=== PATIENT | female | born 1945 | race Caucasian/White ===

== ENCOUNTER → 2016-09-29 | Outpatient (REF) | payer MEDICARE, OTHER ==
[~2016-09-29] MED LIST: ACTO30TA; ASPI1TAB PO; ATEN50TA2; CARV12.5 PO; FURO40TA2; GLIP10TA6 PO; GLUC500T; GLUC500T PO; LISI20TA5 OR; LUMIGAN EYE DROPS; METF500T4; PLAV75TA38 PO; [UNRECOGNIZED DRUG - CODE]; stool softener OR
== END ==
LOC: M SMT 12:51
PROVIDERS: ATTEND Urology
DX: C67.9 Malignant neoplasm of bladder, unspecified (principal)

== ENCOUNTER → 2016-11-05 | Outpatient (CLI) | payer MEDICARE ==
[2016-11-05 11:53] LABS: MEAN CORPUSCULAR HEMOGLOBIN 29.8 pg (27.0-33.0); MEAN CORPUSCULAR HGB CONC 32.2 g/dl (32.0-36.5); MEAN CORPUSCULAR VOLUME 92.7 fl (80.0-96.0); RED CELL DISTRIBUTION WIDTH 12.7 % (11.5-14.5); WHITE BLOOD COUNT 9.8 K/mm3 (4.0-10.0)
[2016-11-05 12:43] LABS: ALBUMIN 3.9 GM/DL (3.2-5.2); ALBUMIN/GLOBULIN RATIO 1.22 (1.00-1.93); BILIRUBIN,TOTAL 0.3 MG/DL (0.2-1.0); CALCIUM LEVEL 9.8 MG/DL (8.8-10.2); CREATININE FOR GFR 1.25 MG/DL (0.55-1.02); GLOMERULAR FILTRATION RATE 44.8 (>39); TOTAL PROTEIN 7.1 GM/DL (6.4-8.2)
== END ==
LOC: M SMT 08:02
PROVIDERS: ATTEND Urology
DX: C67.9 Malignant neoplasm of bladder, unspecified (principal)

== ENCOUNTER → 2017-01-12 | Outpatient (REF) | payer MEDICARE | LOC: M SMT 16:55 | PROVIDERS: ATTEND Urology | DX: Z85.51 Personal history of malignant neoplasm of bladder (principal) ==

== ENCOUNTER → 2017-02-19 | Outpatient (REF) | payer MEDICARE | LOC: M SMT 10:34 | PROVIDERS: ATTEND Urology | DX: R35.0 Frequency of micturition (principal) ==

== ENCOUNTER → 2017-04-13 | Outpatient (REF) | payer MEDICARE ==
[~2017-04-13] MED LIST changes: +PLAV1TAB2 PO; -PLAV75TA38 PO
== END ==
LOC: M SMT 12:55
PROVIDERS: ATTEND Urology
DX: Z85.51 Personal history of malignant neoplasm of bladder (principal)

== ENCOUNTER → 2017-07-29 | Outpatient (CLI) | payer MEDICARE ==
[~2017-07-29] MED LIST changes: +ISOVUE-370 76% 100ML VIAL (Q9967) As Ordered ONE
--- NOTE | 2017-07-29 15:35 | REP ---
Clinical: Hematuria. Technique: Axial precontrast, contrast enhanced and delayed images of the abdomen and pelvis using 100 ml Isovue 370 intravenous contrast material with coronal and sagittal re-formations. Comparison: 12/31/2014. Findings: Few nonobstructing bilateral intrarenal calculi measure up to approximately 2 mm and small bilateral primarily sub centimeter cysts are also identified (right greater than left) - the largest of which is noted in the right kidney measures 12 mm. Cortical scarring and atrophic change noted (left greater than right). No perinephric stranding, hydroureteronephrosis or obstructing ureteral calculi are identified. Delayed images demonstrate normal excretion to the collecting system including ureters and bladder. Fatty infiltration the liver noted. Spleen, pancreas, and bilateral adrenal glands are normal. The patient is status post cholecystectomy. Midline ventral hernias containing nonobstructed loops of bowel and are unchanged compared to 2014. No evidence for acute bowel obstruction or inflammatory process. Pelvis demonstrates normal bladder and uterus/adnexa. Evidence for prior partial sigmoid anastomosis. No pelvic fluid or ascites. No adenopathy. No obvious solitary mass lesion. Atherosclerotic changes of the aorta and vasculature noted without aneurysm or dissection. Musculoskeletal structures demonstrate diffuse degenerative changes without focal osseous abnormality. Lung bases are clear. Impression: 1. Kidneys demonstrate mild cortical scarring and chronic changes along with few scattered small cysts measuring up to 12 mm and few small intrarenal calculi up to 2 mm. No associated acute obstructive uropathy or significant urological pathology otherwise appreciated. 2. Few ventral hernias containing nonobstructed loops of bowel essentially unchanged compared to 2014. 3. Further chronic stable changes as described above. Signed by Ward Rahmna MD 07/29/2017 03:26 P
== END ==
LOC: M RAD 13:41
PROVIDERS: ATTEND Urology
DX: N28.1 Cyst of kidney, acquired (principal); K43.9 Ventral hernia without obstruction or gangrene
CPT/HCPCS: 74178; Q9967

== ENCOUNTER → 2017-08-03 | Outpatient (REF) | payer MEDICARE ==
[~2017-08-03] MED LIST changes: -ISOVUE-370 76% 100ML VIAL (Q9967) As Ordered ONE
== END ==
LOC: M SMT 12:58
PROVIDERS: ATTEND Urology
DX: Z08 Encounter for follow-up examination after completed treatment for malignant neoplasm (principal); Z85.51 Personal history of malignant neoplasm of bladder

== ENCOUNTER → 2017-11-30 | Outpatient (REF) | payer MEDICARE | LOC: M SMT 17:11 | DX: C67.9 Malignant neoplasm of bladder, unspecified (principal); R39.89 Other symptoms and signs involving the genitourinary system | CPT/HCPCS: 87086 ==

== ENCOUNTER → 2018-01-21 | Outpatient (CLI) | payer MEDICARE | LOC: M WUC 14:34 | DX: M50.30 Other cervical disc degeneration, unspecified cervical region (principal); M51.37 Other intervertebral disc degeneration, lumbosacral region | CPT/HCPCS: 72040 ==

== ENCOUNTER → 2018-01-26 | Outpatient (CLI) | payer MEDICARE | LOC: M RAD 15:31 | DX: M54.2 Cervicalgia (principal) | CPT/HCPCS: 72125 ==

== ENCOUNTER → 2018-03-17 | Outpatient (REF) | payer MEDICARE | LOC: M SMT 13:11 | DX: C67.9 Malignant neoplasm of bladder, unspecified (principal) | CPT/HCPCS: 88108 ==

== ENCOUNTER 2018-08-27 20:49 | Emergency (ER) | payer MEDICARE | END 2018-08-27 23:19 | disposition home or self-care (01) | LOC: M ED 20:49 | DX: T81.89XA Other complications of procedures, not elsewhere classified, initial encounter (principal); Y92.9 Unspecified place or not applicable; Y93.9 Activity, unspecified; Z96.642 Presence of left artificial hip joint; E11.9 Type 2 diabetes mellitus without complications; I10 Essential (primary) hypertension; K57.32 Diverticulitis of large intestine without perforation or abscess without bleeding; Z79.82 Long term (current) use of aspirin; Z79.84 Long term (current) use of oral hypoglycemic drugs; Z79.899 Other long term (current) drug therapy; Z91.041 Radiographic dye allergy status; Z91.89 Other specified personal risk factors, not elsewhere classified; Z91.013 Allergy to seafood; Z88.8 Allergy status to other drugs, medicaments and biological substances | CPT/HCPCS: 93971 ==

== ENCOUNTER → 2018-12-23 | Outpatient (REF) | payer MEDICARE ==
[~2018-12-23] MED LIST changes: +ACET-683 PO; -ASPI1TAB PO; +ASPI81TA26 PO; +LOVA40TA PO; +SKEL800T97 PO
== END ==
LOC: M SMT 13:20
PROVIDERS: ATTEND Urology
DX: Z85.51 Personal history of malignant neoplasm of bladder (principal)

== ENCOUNTER → 2019-07-03 | Outpatient (REF) | payer MEDICARE | LOC: M SMT 13:33 | PROVIDERS: ATTEND Urology | DX: Z85.51 Personal history of malignant neoplasm of bladder (principal) ==

== ENCOUNTER → 2020-01-01 | Outpatient (REF) | payer MEDICARE | LOC: M LAB REF 21:36 | PROVIDERS: ATTEND Urology | DX: Z85.51 Personal history of malignant neoplasm of bladder (principal) ==

== ENCOUNTER → 2020-05-13 | Outpatient (CLI) | payer MEDICARE | LOC: M LABSMTC 12:13 | PROVIDERS: ATTEND Family Medicine | DX: Z11.59 Encounter for screening for other viral diseases (principal) | CPT/HCPCS: C9803; U0003 ==

== ENCOUNTER → 2020-06-06 | Outpatient (CLI) | payer MEDICARE ==
[~2020-06-06] MED LIST changes: +ISOVUE-370 76% 100ML VIAL As Ordered ONE
[2020-06-06 11:08] LABS: RED BLOOD COUNT 3.59 10^6/uL (4.00-5.40); WHITE BLOOD COUNT 10.8 10^3/uL (4.0-10.0)
[2020-06-06 11:09] LABS: BASO % 0.3 % (0.0-1.0); EOS # 0.1 10^3/uL (0.0-0.5); EOS % 1.1 % (0.0-3.0); HEMATOCRIT 33.1 % (36.0-47.0); HEMOGLOBIN 10.5 g/dl (12.0-15.5); LYMPH # 1.7 10^3/uL (1.5-5.0); MEAN CORPUSCULAR HEMOGLOBIN 29.2 pg (27.0-33.0); MEAN CORPUSCULAR HGB CONC 31.7 g/dl (32.0-36.5); MEAN CORPUSCULAR VOLUME 92.2 fl (80.0-96.0); MONO # 0.8 10^3/uL (0.0-0.8); MONO % 7.7 % (0.0-5.0); NEUTROPHILS % 74.3 % (36.0-66.0); PLATELET COUNT, AUTOMATED 333 10^3/uL (150-450)
[2020-06-06 11:22] LABS: CALCIUM LEVEL 9.6 MG/DL (8.8-10.2); CREATININE FOR GFR 1.17 MG/DL (0.55-1.30); POTASSIUM SERUM 3.9 MEQ/L (3.5-5.1)
--- NOTE | 2020-06-06 11:47 | REPVR ---
PROCEDURE INFORMATION: Exam: US Duplex Left Lower Extremity Veins, Limited Exam date and time: 06/06/2020 11:42 AM Age: 74 years old Clinical indication: Pain; Leg, lower; Left; Additional info: Leg swelling ct 1st US 2nd TECHNIQUE: Imaging protocol: Real-time Duplex ultrasound of the Left Lower Extremity with 2-D ramírez scale, color Doppler flow and spectral waveform analysis with image documentation. Limited exam focused on the left lower extremity veins. COMPARISON: US Duplex, Ext,LOWER veins,unilat LEFT 08/27/2018 9:38 PM FINDINGS: Left deep veins: Unremarkable. The common femoral, femoral, proximal profunda femoral and popliteal veins are patent without thrombus. Normal Doppler waveforms. Normal compressibility and/or augmentation response. Left superficial veins: Unremarkable. Saphenofemoral junction is patent without thrombus. Soft tissues: Unremarkable. IMPRESSION: No sonographic evidence of deep vein thrombosis. Electronically signed by: Radha Ortiz On 06/06/2020 11:47:15 AM
--- NOTE | 2020-06-06 12:32 | REPVR ---
PROCEDURE INFORMATION: Exam: CT Angiography Chest With Contrast Exam date and time: 06/06/2020 11:56 AM Age: 74 years old Clinical indication: Dyspnea; Additional info: Dyspnea on exertion ct 1st US 2nd TECHNIQUE: Imaging protocol: Computed tomographic angiography of the chest with intravenous contrast. 3D rendering (Not supervised by radiologist): MIP and/or 3D reconstructed images were created by the technologist. Radiation optimization: All CT scans at this facility use at least one of these dose optimization techniques: automated exposure control; mA and/or kV adjustment per patient size (includes targeted exams where dose is matched to clinical indication); or iterative reconstruction. Contrast material: ISOVUE 370; Contrast volume: 75 ml; Contrast route: INTRAVENOUS (IV); COMPARISON: CR Chest, 2 view PA, Lat 10/10/2015 10:37 AM FINDINGS: Pulmonary arteries: There is no filling defect in the pulmonary arteries bilaterally to indicate pulmonary emboli. Central pulmonary arteries are mildly enlarged. Aorta: There is atherosclerotic calcification of the thoracic aorta Lungs: 7 mm mixed soft tissue density and ground-glass pulmonary nodule in the left lower lobe posteriorly on series 402, image 69. Minimal bibasilar atelectasis or scar, with nodular atelectasis or scar component in the right middle lobe. Pleural space: There are small hypodense bilateral pleural effusions. No pneumothorax. Heart: The heart size is enlarged, particularly the left atrium and left ventricle. There is a small hypodense pericardial effusion. Lymph nodes: Unremarkable. No enlarged lymph nodes. Gallbladder and bile ducts: There has been a cholecystectomy. No significant biliary ductal dilatation. Stomach and bowel: There is a right ventral abdominal wall hernia, only partially included, containing a portion of the transverse colon. No associated inflammatory change. No evidence of bowel obstruction on images of the upper abdomen. Bones/joints: No acute osseous abnormality. Multilevel degenerative disc disease. Partial fusion of the T2 and T3 vertebral bodies, which are relatively small in size. Soft tissues: Unremarkable. IMPRESSION: 1. 7 mm mixed soft tissue density and ground-glass nodule in the left lower lobe. 2. Cardiomegaly, particularly with enlargement of the left atrium and left ventricle, with small pericardial effusion. 3. No evidence of pulmonary embolism. 4. Small hypodense bilateral pleural effusions. 5. Right ventral abdominal wall hernia containing a portion of the transverse colon. Recommend CT Chest at 3-6 months to confirm persistence of the nodule. If unchanged and solid component remains < 6 mm, annual CT Chest should be performed for 5 years. (Reference: Iraida) References: Iraida Becker, et al. Guidelines for Management of Incidental Pulmonary Nodules Detected on CT Images: From the Fleischner Society 2017. Radiology. 2017;284(1):228-243. Electronically signed by: Radha Ortiz On 06/06/2020 12:32:09 PM
== END ==
LOC: M LAB 10:21
PROVIDERS: ATTEND Nurse Practitioner Family
DX: R91.1 Solitary pulmonary nodule (principal); J98.4 Other disorders of lung; M79.89 Other specified soft tissue disorders; I51.7 Cardiomegaly; I31.9 Disease of pericardium, unspecified; J90 Pleural effusion, not elsewhere classified
CPT/HCPCS: 36415; 71275; 80048; 83880; 85025; 93971; Q9967

== ENCOUNTER → 2021-02-14 | Outpatient (REF) | payer MEDICARE ==
[~2021-02-14] MED LIST changes: -ISOVUE-370 76% 100ML VIAL As Ordered ONE
[2021-02-14 17:25] LABS: HEMATOCRIT 35.7 % (36.0-47.0); HEMOGLOBIN 11.2 g/dl (12.0-15.5); MEAN CORPUSCULAR HEMOGLOBIN 30.4 pg (27.0-33.0); MEAN CORPUSCULAR HGB CONC 31.4 g/dl (32.0-36.5); MEAN CORPUSCULAR VOLUME 96.7 fl (80.0-96.0); PLATELET COUNT, AUTOMATED 209 10^3/uL (150-450); RED BLOOD COUNT 3.69 10^6/uL (4.00-5.40); WHITE BLOOD COUNT 7.4 10^3/uL (4.0-10.0)
[2021-02-14 17:51] LABS: ALBUMIN 3.9 GM/DL (3.2-5.2); BILIRUBIN,TOTAL 0.3 MG/DL (0.2-1.0); CALCIUM LEVEL 9.8 MG/DL (8.8-10.2); CREATININE FOR GFR 1.31 MG/DL (0.55-1.30); THYROID STIMULATING HORMONE 2.49 uIU/ML (0.358-3.740); TOTAL PROTEIN 7.5 GM/DL (6.4-8.2)
== END ==
LOC: M PLALAB 16:56
PROVIDERS: ATTEND Family Medicine
DX: R53.81 Other malaise (principal)

== ENCOUNTER → 2021-03-01 | Outpatient (CLI) | payer MEDICARE ==
--- NOTE | 2021-03-01 15:09 | REP ---
INDICATION: ABN FINDING OF LUNG COMPARISON: 06/06/2020 the latest prior a contrast enhanced exam. TECHNIQUE: Standard helical technique without intravenous contrast. FINDINGS: The mediastinum and pulmonary surya are centrally unchanged. There is no evidence of a mass or adenopathy. There is right atrial enlargement status quo. There are no pleural or pericardial effusions. The imaged upper abdomen shows tiny nonobstructing bilateral nephroliths. There is an unchanged ventral hernia. There is no significant change in appearance of the imaged osseous structures. Evaluation of the lung mcconnell shows a stable 9 mm sized left lower lobe nodule. No new abnormal nodules, masses, or opacities have developed. IMPRESSION: CT findings as described above. Left lower lobe nodule is stable. According to the revised Fleischner society criteria 1 year follow-up is suggested. <Electronically signed by Andrey Yen > 03/01/21 [id number]
== END ==
LOC: M RAD 14:36
PROVIDERS: ATTEND Family Medicine
DX: R91.1 Solitary pulmonary nodule (principal)

== ENCOUNTER → 2021-05-02 | Outpatient (CLI) | payer MEDICARE ==
[2021-05-02 11:15] LABS: CALCIUM LEVEL 8.9 MG/DL (8.8-10.2); CHOLESTEROL RISK RATIO 3.907 (<5); CREATININE FOR GFR 1.29 MG/DL (0.55-1.30); GLOMERULAR FILTRATION RATE 42.8 (>39); POTASSIUM SERUM 3.8 MEQ/L (3.5-5.1)
== END ==
LOC: M PLALAB 08:40
PROVIDERS: ATTEND Nurse Practitioner Family
DX: E78.00 Pure hypercholesterolemia, unspecified (principal)

== ENCOUNTER → 2021-05-05 | Outpatient (REF) | payer MEDICARE | LOC: M SMT 13:03 | PROVIDERS: ATTEND Urology | DX: Z85.51 Personal history of malignant neoplasm of bladder (principal) ==

== ENCOUNTER 2021-11-01 20:48 | Emergency (ER) | payer MEDICARE ==
[~2021-11-01] VITALS: Ht 139.7 cm; Wt 62.0 kg
[2021-11-01 21:26] LABS: BASO # 0.1 10^3/uL (0.0-0.2); BASO % 0.5 % (0.0-1.0); EOS # 0.2 10^3/uL (0.0-0.5); EOS % 2.1 % (0.0-3.0); HEMATOCRIT 33.9 % (36.0-47.0); HEMOGLOBIN 11.2 g/dl (12.0-15.5); LYMPH # 1.9 10^3/uL (1.5-5.0); LYMPH % 20.1 % (24.0-44.0); MEAN CORPUSCULAR HEMOGLOBIN 30.9 pg (27.0-33.0); MEAN CORPUSCULAR VOLUME 93.6 fl (80.0-96.0); MONO # 0.6 10^3/uL (0.0-0.8); MONO % 6.1 % (2.0-8.0); NEUTROPHILS # 6.7 10^3/uL (1.5-8.5); NEUTROPHILS % 70.8 % (36.0-66.0); PLATELET COUNT, AUTOMATED 206 10^3/uL (150-450); RED BLOOD COUNT 3.62 10^6/uL (4.00-5.40); WHITE BLOOD COUNT 9.5 10^3/uL (4.0-10.0)
[2021-11-01] MEDS ORDERED: NS 1,000 ML IV ONE (21:35)
[2021-11-01 21:42] LABS: INR 0.92; PROTHROMBIN TIME 12.8 SECONDS (12.7-14.5)
[2021-11-01 21:58] LABS: CALCIUM LEVEL 8.9 MG/DL (8.8-10.2); CREATININE FOR GFR 1.71 MG/DL (0.55-1.30); GLOMERULAR FILTRATION RATE 30.8 (>39); MAGNESIUM LEVEL 1.1 MG/DL (1.8-2.4); POTASSIUM SERUM 4.1 MEQ/L (3.5-5.1); THYROID STIMULATING HORMONE 5.6 uIU/ML (0.358-3.740)
[2021-11-01 22:06] LABS: MB/CK RELATIVE INDEX 1.2 (< OR =4)
[2021-11-01] MEDS ORDERED: ACETAMINOPHEN TAB 650MG DOSE (2X325MG) PO ONE (22:30)
[2021-11-01 22:39] LABS: FREE T4 1.15 NG/DL (0.76-1.46)
[2021-11-01 23:43] LABS: CK-MB VALUE MASS < 1.0 NG/ML (<3.6); CPK CREATINE PHOSPHOKINASE 63 U/L (26-192); MB/CK RELATIVE INDEX 1.59 (< OR =4)
[2021-11-01] MEDS ORDERED: FURO40TA2 PO (23:44)
[2021-11-01] MEDS ORDERED: OMEP40CA5 PO (23:44)
[2021-11-01] MEDS ORDERED: PRAV40TA2 PO (23:44)
[2021-11-02 00:58] LABS: CK-MB VALUE MASS < 1.0 NG/ML (<3.6); CPK CREATINE PHOSPHOKINASE 92 U/L (26-192); MB/CK RELATIVE INDEX 1.09 (< OR =4)
[2021-11-02 01:24] VITALS: O2SAT 97
[2021-11-02 01:30] VITALS: BP 129/60
== END 2021-11-02 01:45 | disposition home or self-care (01) ==
LOC: M ED 20:48
DX: I95.1 Orthostatic hypotension (principal); R94.31 Abnormal electrocardiogram [ECG] [EKG]; I51.9 Heart disease, unspecified; E11.9 Type 2 diabetes mellitus without complications; I10 Essential (primary) hypertension; Z91.013 Allergy to seafood; Z91.048 Other nonmedicinal substance allergy status; Z79.4 Long term (current) use of insulin; Z95.5 Presence of coronary angioplasty implant and graft; Z79.899 Other long term (current) drug therapy

== ENCOUNTER → 2022-01-30 | Outpatient (REF) | payer MEDICARE ==
[~2022-01-30] MED LIST changes: +FURO40TA2 PO; +OMEP40CA5 PO; +PRAV40TA2 PO
[2022-01-30 17:42] LABS: APPEARANCE, URINE HAZY (CLEAR); BACTERIA, URINE AUTO 1+ (NEGATIVE); BILIRUBIN, URINE AUTO NEGATIVE (NEGATIVE); BLOOD, URINE BLOOD 3+ (NEGATIVE); COLOR, URINE YELLOW (YELLOW); GLUCOSE, URINE (UA) AUTO 1+ mg/dL (NEGATIVE); KETONE, URINE AUTO NEGATIVE (NEGATIVE); LEUKOCYTE ESTERASE, URINE AUTO 3+ (NEGATIVE); MUCUS, URINE SMALL (NEGATIVE); NITRITE, URINE AUTO NEGATIVE (NEGATIVE); PROTEIN, URINE AUTO 2+ mg/dL (NEGATIVE); RBC, URINE AUTO 93 /HPF (0-3); SPECIFIC GRAVITY URINE AUTO 1.014 (1.002-1.035); SQUAMOUS EPITHELIAL CELL UR AU 2 /HPF (0-6); UROBILINOGEN, URINE AUTO 0.2 mg/dL (0.0-2.0); WBC, URINE AUTO 121 /HPF (0-3)
== END ==
LOC: M SMT 17:05
PROVIDERS: ATTEND Urology
DX: R30.0 Dysuria (principal)

== ENCOUNTER → 2022-02-03 | Outpatient (CLI) | payer MEDICARE ==
[2022-02-03 15:35] LABS: BASO # 0.1 10^3/uL (0.0-0.2); BASO % 0.4 % (0.0-1.0); EOS # 0.1 10^3/uL (0.0-0.5); EOS % 0.9 % (0.0-3.0); HEMATOCRIT 32.8 % (36.0-47.0); HEMOGLOBIN 10.3 g/dl (12.0-15.5); LYMPH # 2.5 10^3/uL (1.5-5.0); LYMPH % 20.1 % (24.0-44.0); MEAN CORPUSCULAR HEMOGLOBIN 29.2 pg (27.0-33.0); MEAN CORPUSCULAR HGB CONC 31.4 g/dl (32.0-36.5); MEAN CORPUSCULAR VOLUME 92.9 fl (80.0-96.0); MONO # 0.6 10^3/uL (0.0-0.8); MONO % 4.7 % (2.0-8.0); NEUTROPHILS % 72.8 % (36.0-66.0); PLATELET COUNT, AUTOMATED 433 10^3/uL (150-450); RED BLOOD COUNT 3.53 10^6/uL (4.00-5.40); WHITE BLOOD COUNT 12.4 10^3/uL (4.0-10.0)
[2022-02-03 15:36] LABS: ALBUMIN 2.6 GM/DL (3.2-5.2); BILIRUBIN,TOTAL 0.2 MG/DL (0.2-1.0); CREATININE FOR GFR 1.17 MG/DL (0.55-1.30); GLOMERULAR FILTRATION RATE 47.7 (>39); POTASSIUM SERUM 4.3 MEQ/L (3.5-5.1)
== END ==
LOC: M PLALAB 13:20
PROVIDERS: ATTEND Family Medicine
DX: R10.84 Generalized abdominal pain (principal)

== ENCOUNTER → 2022-02-13 | Outpatient (CLI) | payer MEDICARE ==
[~2022-02-13] MED LIST changes: +GASTROGRAFIN SOLUTION 30ML (Q9963) ONE; +ISOVUE-370 76% 100ML VIAL ONE
== END ==
LOC: M PLAIMG 10:38
PROVIDERS: ATTEND Family Medicine
DX: R10.84 Generalized abdominal pain (principal); R11.2 Nausea with vomiting, unspecified; Z90.49 Acquired absence of other specified parts of digestive tract; N28.1 Cyst of kidney, acquired
CPT/HCPCS: 74177; Q9963; Q9967

== ENCOUNTER → 2022-02-19 | Outpatient (CLI) | payer MEDICARE ==
[~2022-02-19] MED LIST changes: +DULC10SU2 PR; +E-Z-GAS II EFFERVESCENT PACKET (SODIUM BICARB./CITRIC ACID/SIMETHICONE) As Ordered ONE; +E-Z-HD 98% w/w 340GM SUSP BTL As Ordered ONE; +E-Z-PAQUE 96% w/w SUSP 176GM BTL As Ordered ONE; -GASTROGRAFIN SOLUTION 30ML (Q9963) ONE; -ISOVUE-370 76% 100ML VIAL ONE
== END ==
LOC: M RAD 08:27
PROVIDERS: ATTEND Family Medicine
DX: R10.9 Unspecified abdominal pain (principal)

== ENCOUNTER → 2022-02-19 | Outpatient (CLI) | payer MEDICARE ==
[~2022-02-19] MED LIST changes: -E-Z-GAS II EFFERVESCENT PACKET (SODIUM BICARB./CITRIC ACID/SIMETHICONE) As Ordered ONE; -E-Z-HD 98% w/w 340GM SUSP BTL As Ordered ONE; -E-Z-PAQUE 96% w/w SUSP 176GM BTL As Ordered ONE
== END ==
LOC: M RAD 08:18
PROVIDERS: ATTEND Family Medicine
DX: R10.84 Generalized abdominal pain (principal); R11.2 Nausea with vomiting, unspecified

== ENCOUNTER 2022-02-22 12:13 | Emergency (ER) | payer MEDICARE ==
[~2022-02-22] VITALS: Ht 144.8 cm; Wt 58.0 kg
[~2022-02-22 12:13] MED LIST changes: -DULC10SU2 PR
[2022-02-22] MEDS ORDERED: LIDOCAINE W/EPINEPHRINE 1% 20ML VIAL SC ONE (13:50)
[2022-02-22] MEDS ORDERED: MAGNESIUM CITRATE 300 ML BTL PO ONE ×2 (15:55→17:50)
[2022-02-22] MEDS ORDERED: BISACODYL 10 MG SUPP PR ONE (17:45)
[2022-02-22] MEDS ORDERED: DULC10SU2 PR (18:18)
[2022-02-22 18:34] VITALS: BP 133/84
== END 2022-02-22 18:35 | disposition home or self-care (01) ==
LOC: M ED 12:13
DX: K64.9 Unspecified hemorrhoids (principal); K59.00 Constipation, unspecified

== ENCOUNTER → 2022-05-11 | Outpatient (REF) | payer MEDICARE ==
[~2022-05-11] MED LIST changes: +DULC10SU2 PR
== END ==
LOC: M SMT 16:55
PROVIDERS: ATTEND Urology
DX: Z85.51 Personal history of malignant neoplasm of bladder (principal)

== ENCOUNTER → 2022-07-01 | Outpatient (REF) | payer MEDICARE ==
[2022-07-01 16:20] LABS: APPEARANCE, URINE MANUAL CLEAR (CLEAR); BILIRUBIN, URINE MANUAL NEGATIVE (NEGATIVE); BLOOD URINE MANUAL TRACE (NEGATIVE); COLOR, URINE MANUAL LT YELLOW (YELLOW); GLUCOSE, URINE (UA) MANUAL NEGATIVE (NEGATIVE); KETONE, URINE MANUAL NEGATIVE (NEGATIVE); LEUKOCYTE ESTERASE, URINE MAN POSITIVE (NEGATIVE); NITRITE, URINE MANUAL NEGATIVE (NEGATIVE); PROTEIN, URINE MANUAL TRACE mg/dL (NEGATIVE); UROBILINOGEN, URINE MANUAL NORMAL (NORMAL)
[2022-07-01 16:51] LABS: RBC, URINE 0-1 /hpf (0-3); SQUAMOUS EPITHELIAL CELL URINE SMALL AMOUNT /hpf (SMALL AMT)
[2022-07-01 16:52] LABS: BACTERIA, URINE SMALL AMOUNT
== END ==
LOC: M SMT 15:13
PROVIDERS: ATTEND Urology
DX: R30.0 Dysuria (principal)

== ENCOUNTER → 2022-08-05 | Outpatient (CLI) | payer MEDICARE ==
[~2022-08-05] MED LIST changes: +CLOP75TA99 PO; -PLAV1TAB2 PO
== END ==
LOC: M LAB 11:39
PROVIDERS: ATTEND Surgery
DX: M54.50 Low back pain, unspecified (principal)

== ENCOUNTER → 2022-08-25 | Outpatient (CLI) | payer MEDICARE | LOC: M PLAIMG 11:17 | PROVIDERS: ATTEND Family Medicine | DX: R91.8 Other nonspecific abnormal finding of lung field (principal) ==

== ENCOUNTER → 2023-03-09 | Outpatient (REF) | payer MEDICARE | LOC: M LAB REF 18:41 | PROVIDERS: ATTEND Nurse Practitioner Family | DX: R30.0 Dysuria (principal) ==

== ENCOUNTER → 2023-03-18 | Outpatient (CLI) | payer MEDICARE ==
[2023-03-18 17:15] LABS: BASO # 0.1 10^3/uL (0.0-0.2); BASO % 0.6 % (0.0-1.0); EOS # 0.3 10^3/uL (0.0-0.5); EOS % 2.9 % (0.0-3.0); HEMATOCRIT 36.4 % (36.0-47.0); HEMOGLOBIN 11.6 g/dl (12.0-15.5); LYMPH # 2.5 10^3/uL (1.5-5.0); MEAN CORPUSCULAR HEMOGLOBIN 29.1 pg (27.0-33.0); MEAN CORPUSCULAR HGB CONC 31.9 g/dl (32.0-36.5); MEAN CORPUSCULAR VOLUME 91.5 fl (80.0-96.0); MONO # 0.7 10^3/uL (0.0-0.8); PLATELET COUNT, AUTOMATED 220 10^3/uL (150-450); RED BLOOD COUNT 3.98 10^6/uL (4.00-5.40); WHITE BLOOD COUNT 8.5 10^3/uL (4.0-10.0)
[2023-03-18 17:24] LABS: APPEARANCE, URINE CLEAR (CLEAR); BACTERIA, URINE AUTO NEGATIVE (NEGATIVE); BILIRUBIN, URINE AUTO NEGATIVE (NEGATIVE); BLOOD, URINE BLOOD 1+ (NEGATIVE); COLOR, URINE YELLOW (YELLOW); GLUCOSE, URINE (UA) AUTO NEGATIVE (NEGATIVE); KETONE, URINE AUTO NEGATIVE (NEGATIVE); LEUKOCYTE ESTERASE, URINE AUTO NEGATIVE (NEGATIVE); NITRITE, URINE AUTO NEGATIVE (NEGATIVE); PROTEIN, URINE AUTO NEGATIVE (NEGATIVE); RBC, URINE AUTO 3 /HPF (0-3); SPECIFIC GRAVITY URINE AUTO 1.013 (1.002-1.035); SQUAMOUS EPITHELIAL CELL UR AU 0 /HPF (0-6); UROBILINOGEN, URINE AUTO 0.2 mg/dL (0.0-2.0); WBC, URINE AUTO 2 /HPF (0-3)
[2023-03-18 17:33] LABS: ALBUMIN 3.8 G/DL (3.2-5.2); ALKALINE PHOSPHATASE 52 U/L (46-116); ALT/SGPT < 9 U/L (7.0-40); AST/SGOT 22 U/L (<34); BILIRUBIN,TOTAL 0.3 MG/DL (0.3-1.2); BLOOD UREA NITROGEN 34 MG/DL (9-23); CALCIUM LEVEL 9.2 MG/DL (8.3-10.6); CARBON DIOXIDE LEVEL 30 MMOL/L (20-31); CHLORIDE LEVEL 103 MMOL/L (98-107); CREATININE FOR GFR 1.56 MG/DL (0.55-1.30); GLOMERULAR FILTRATION RATE 34.2 (>39); GLUCOSE, FASTING 102 MG/DL (74-106); POTASSIUM SERUM 4.2 MMOL/L (3.5-5.1); SODIUM LEVEL 139 MMOL/L (136-145); TOTAL PROTEIN 7.2 G/DL (5.7-8.2)
[2023-03-18 17:44] LABS: INR 0.99; PROTHROMBIN TIME 13.3 SECONDS (12.5-14.5)
[2023-03-18 17:45] LABS: PARTIAL THROMBOPLASTIN TIME 25.8 SECONDS (24.8-34.2)
== END ==
LOC: M PLALAB 15:17
PROVIDERS: ATTEND Family Medicine
DX: N39.0 Urinary tract infection, site not specified (principal); Z79.01 Long term (current) use of anticoagulants

== ENCOUNTER → 2023-05-11 | Outpatient (REF) | payer MEDICARE | LOC: M SMT 17:57 | PROVIDERS: ATTEND Urology | DX: Z85.51 Personal history of malignant neoplasm of bladder (principal) ==

== ENCOUNTER 2023-08-30 17:14 | Emergency (ER) | payer MEDICARE ==
[~2023-08-30] VITALS: Ht 142.2 cm; Wt 80.0 kg
[~2023-08-30 17:14] MED LIST changes: -CEFD1CAP9 PO; -ONDA4TAB6 PO
[2023-08-30 18:26] LABS: RSV AMPLIFICATION NEGATIVE (NEGATIVE)
[2023-08-30 19:20] LABS: BASO % 0.1 % (0.0-1.0); HEMATOCRIT 30.7 % (36.0-47.0); HEMOGLOBIN 10.3 g/dl (12.0-15.5); LYMPH # 0.6 10^3/uL (1.5-5.0); LYMPH % 4.1 % (24.0-44.0); MEAN CORPUSCULAR HEMOGLOBIN 30.1 pg (27.0-33.0); MEAN CORPUSCULAR HGB CONC 33.6 g/dl (32.0-36.5); MEAN CORPUSCULAR VOLUME 89.8 fl (80.0-96.0); MONO # 0.6 10^3/uL (0.0-0.8); MONO % 4.5 % (2.0-8.0); NEUTROPHILS # 12.7 10^3/uL (1.5-8.5); NEUTROPHILS % 90.8 % (36.0-66.0); PLATELET COUNT, AUTOMATED 168 10^3/uL (150-450); RED BLOOD COUNT 3.42 10^6/uL (4.00-5.40)
[2023-08-30] MEDS ORDERED: ONDANSETRON 4MG 2ML VIAL IV ONE (19:40)
[2023-08-30 19:46] LABS: CK-MB VALUE MASS < 1.0 NG/ML (<3.6); LIPASE 27 U/L (12-53)
[2023-08-30 19:47] LABS: AMYLASE 66 U/L (30-118)
[2023-08-30 19:48] LABS: ALBUMIN 3.2 G/DL (3.2-5.2); ALKALINE PHOSPHATASE 44 U/L (46-116); ALT/SGPT 24 U/L (7.0-40); AST/SGOT 25 U/L (<34); BILIRUBIN,DIRECT 0.2 MG/DL (<0.4); BILIRUBIN,TOTAL 0.6 MG/DL (0.3-1.2); TOTAL PROTEIN 6.7 G/DL (5.7-8.2)
[2023-08-30 19:49] LABS: CPK CREATINE PHOSPHOKINASE 90 U/L (34-145); MB/CK RELATIVE INDEX 1.11 (< OR =4)
[2023-08-30] MEDS ORDERED: NS 1,000 ML IV SCH (20:05)
[2023-08-30] MEDS ORDERED: ACETAMINOPHEN TAB 650MG DOSE (2X325MG) PO ONE (20:05)
[2023-08-30 20:07] LABS: BLOOD UREA NITROGEN 34 MG/DL (9-23); CALCIUM LEVEL 8.5 MG/DL (8.3-10.6); CARBON DIOXIDE LEVEL 25 MMOL/L (20-31); CHLORIDE LEVEL 96 MMOL/L (98-107); CREATININE FOR GFR 1.34 MG/DL (0.55-1.30); GLOMERULAR FILTRATION RATE 40.6 (>39); GLUCOSE, FASTING 225 MG/DL (74-106); POTASSIUM SERUM 3.5 MMOL/L (3.5-5.1); SODIUM LEVEL 130 MMOL/L (136-145)
[2023-08-30] MEDS ORDERED: cefTRIAXone SOD 1 GM in D5W MINI-BAG PLUS 50 ML IV ONE (21:15)
[2023-08-30 21:21] LABS: CK-MB VALUE MASS < 1.0 NG/ML (<3.6)
[2023-08-30 21:22] LABS: CPK CREATINE PHOSPHOKINASE 88 U/L (34-145); MB/CK RELATIVE INDEX 1.13 (< OR =4)
[2023-08-30] MEDS ORDERED: CEFD1CAP9 PO (23:02)
[2023-08-30] MEDS ORDERED: ONDA4TAB6 PO (23:03)
[2023-08-31 00:28] VITALS: BP 130/61; TEMP 97.7; O2SAT 96
== END 2023-08-31 00:42 | disposition home or self-care (01) ==
LOC: M ED 17:14
DX: N20.1 Calculus of ureter (principal); N39.0 Urinary tract infection, site not specified; R00.1 Bradycardia, unspecified; I44.4 Left anterior fascicular block; E11.9 Type 2 diabetes mellitus without complications; C67.9 Malignant neoplasm of bladder, unspecified; R30.0 Dysuria; I10 Essential (primary) hypertension; Z86.79 Personal history of other diseases of the circulatory system; Z87.891 Personal history of nicotine dependence; Z88.8 Allergy status to other drugs, medicaments and biological substances; Z91.013 Allergy to seafood; Z91.041 Radiographic dye allergy status; Z91.048 Other nonmedicinal substance allergy status; Z79.82 Long term (current) use of aspirin; Z79.811 Long term (current) use of aromatase inhibitors; Z79.4 Long term (current) use of insulin; Z79.899 Other long term (current) drug therapy
CPT/HCPCS: 51701; 74176; 80047; 80048; 80076; 81001; 82150; 82550; 82553; 83690; 84484; 85025; 87088; 87186; 87631; 93005; 93041; 94760; 96361; 96365; 96366; 96375; 99285; J0696; J2405

== ENCOUNTER → 2023-08-30 | Outpatient (REF) | payer MEDICARE ==
[~2023-08-30] MED LIST changes: +CEFD1CAP9 PO; +ONDA4TAB6 PO
== END ==
LOC: M LAB REF 21:16
PROVIDERS: ATTEND Student in an Organized Health Care Education/Training Program
DX: R30.0 Dysuria (principal)

== ENCOUNTER → 2023-09-16 | Outpatient (REF) | payer MEDICARE ==
[~2023-09-16] MED LIST changes: +CEFD1CAP9 PO; +ONDA4TAB6 PO
[2023-09-17 10:48] LABS: AMORPHOUS SEDIMENT SMALL (NEGATIVE); APPEARANCE, URINE CLEAR (CLEAR); BACTERIA, URINE AUTO NEGATIVE (NEGATIVE); BILIRUBIN, URINE AUTO NEGATIVE (NEGATIVE); BLOOD, URINE BLOOD 1+ (NEGATIVE); COLOR, URINE YELLOW (YELLOW); GLUCOSE, URINE (UA) AUTO NEGATIVE (NEGATIVE); KETONE, URINE AUTO NEGATIVE (NEGATIVE); LEUKOCYTE ESTERASE, URINE AUTO TRACE (NEGATIVE); NITRITE, URINE AUTO NEGATIVE (NEGATIVE); PROTEIN, URINE AUTO 1+ mg/dL (NEGATIVE); RBC, URINE AUTO 3 /HPF (0-3); SPECIFIC GRAVITY URINE AUTO 1.014 (1.002-1.035); SQUAMOUS EPITHELIAL CELL UR AU 1 /HPF (0-6); UROBILINOGEN, URINE AUTO 0.2 mg/dL (0.0-2.0); WBC, URINE AUTO 8 /HPF (0-3)
== END ==
LOC: M SMT 10:08
PROVIDERS: ATTEND Urology
DX: N39.0 Urinary tract infection, site not specified (principal)

== ENCOUNTER → 2023-09-17 | Outpatient (CLI) | payer MEDICARE | LOC: M RAD 15:41 | PROVIDERS: ATTEND Urology | DX: N13.30 Unspecified hydronephrosis (principal) ==

== ENCOUNTER → 2023-11-18 | Outpatient (CLI) | payer MEDICARE | LOC: M PLAIMG 12:59 | PROVIDERS: ATTEND Family Medicine | DX: R91.8 Other nonspecific abnormal finding of lung field (principal) ==

== ENCOUNTER → 2024-03-24 | Outpatient (CLI) | payer MEDICARE ==
[~2024-03-24] MED LIST changes: +ONDA-282 PO; -ONDA4TAB6 PO
[2024-03-24 15:54] LABS: BASO # 0.1 10^3/uL (0.0-0.2); BASO % 0.4 % (0.0-1.0); EOS # 0.1 10^3/uL (0.0-0.5); EOS % 1.1 % (0.0-3.0); HEMATOCRIT 34.4 % (36.0-47.0); HEMOGLOBIN 11.2 g/dl (12.0-15.5); LYMPH # 2.1 10^3/uL (1.5-5.0); LYMPH % 16.5 % (24.0-44.0); MEAN CORPUSCULAR HEMOGLOBIN 30.7 pg (27.0-33.0); MEAN CORPUSCULAR HGB CONC 32.6 g/dl (32.0-36.5); MEAN CORPUSCULAR VOLUME 94.2 fl (80.0-96.0); MONO # 0.6 10^3/uL (0.0-0.8); NEUTROPHILS # 9.8 10^3/uL (1.5-8.5); NEUTROPHILS % 76.6 % (36.0-66.0); PLATELET COUNT, AUTOMATED 198 10^3/uL (150-450); RED BLOOD COUNT 3.65 10^6/uL (4.00-5.40); WHITE BLOOD COUNT 12.8 10^3/uL (4.0-10.0)
[2024-03-24 16:26] LABS: ALBUMIN 3.6 G/DL (3.2-5.2); BILIRUBIN,TOTAL 0.4 MG/DL (0.3-1.2); CALCIUM LEVEL 9.3 MG/DL (8.3-10.6); CHOLESTEROL RISK RATIO 2.78 (<5); CREATININE FOR GFR 1.43 MG/DL (0.55-1.30); CREATININE, URINE 88.3 MG/DL; GLOMERULAR FILTRATION RATE 37.7 (>39); HDL CHOLESTEROL 51.7 MG/DL (>40); LDL CHOLESTEROL 57.1 MG/DL (<100); MAU/CREAT RATIO 175.5 MCG/MG (0.0-30.0); NON-HDL-C 92.3 MG/DL; POTASSIUM SERUM 3.7 MMOL/L (3.5-5.1); TOTAL PROTEIN 6.8 G/DL (5.7-8.2)
== END ==
LOC: M PLALAB 14:11
PROVIDERS: ATTEND Family Medicine
DX: E11.22 Type 2 diabetes mellitus with diabetic chronic kidney disease (principal)

== ENCOUNTER → 2024-04-14 | Outpatient (CLI) | payer MEDICARE | LOC: M PLAIMG 13:48 | PROVIDERS: ATTEND Family Medicine | DX: M17.11 Unilateral primary osteoarthritis, right knee (principal); M16.11 Unilateral primary osteoarthritis, right hip; M79.604 Pain in right leg ==

== ENCOUNTER → 2024-05-26 | Outpatient (REF) | payer MEDICARE | LOC: M SMT 17:32 | PROVIDERS: ATTEND Urology | DX: C67.9 Malignant neoplasm of bladder, unspecified (principal) ==

== ENCOUNTER 2024-08-08 11:30 | Inpatient (IN) | payer MEDICARE ==
[~2024-08-08] VITALS: Ht 134.6 cm; Wt 51.9 kg
[~2024-08-08 11:30] MED LIST changes: +GLIP10TA15 PO; -GLIP10TA6 PO
[2024-08-08 12:38] LABS: BASO % 0.2 % (0.0-1.0); EOS % 0.2 % (0.0-3.0); HEMATOCRIT 33.5 % (36.0-47.0); LYMPH % 7.9 % (24.0-44.0); MEAN CORPUSCULAR HEMOGLOBIN 29.3 pg (27.0-33.0); MEAN CORPUSCULAR HGB CONC 32.8 g/dl (32.0-36.5); MEAN CORPUSCULAR VOLUME 89.1 fl (80.0-96.0); MONO # 0.8 10^3/uL (0.0-0.8); MONO % 5.9 % (2.0-8.0); NEUTROPHILS # 11.1 10^3/uL (1.5-8.5); NEUTROPHILS % 84.7 % (36.0-66.0); PLATELET COUNT, AUTOMATED 336 10^3/uL (150-450); RED BLOOD COUNT 3.76 10^6/uL (4.00-5.40); WHITE BLOOD COUNT 13.1 10^3/uL (4.0-10.0)
[2024-08-08 12:56] LABS: INR 0.94; PARTIAL THROMBOPLASTIN TIME 24.6 SECONDS (24.8-34.2); PROTHROMBIN TIME 12.9 SECONDS (12.5-14.5)
[2024-08-08 13:11] LABS: VENOUS BASE EXCESS -0.2 (-2.0-2.0); VENOUS HCO3 25.4 MMOL/L (23.0-27.0); VENOUS O2 SATURATION 57.5 % (60.0-80.0); VENOUS PARTIAL PRESSURE CO2 45.6 mmHg (38.0-50.0); VENOUS PARTIAL PRESSURE O2 32.7 mmHg (30.0-50.0); VENOUS PH 7.364 UNITS (7.330-7.430); VENOUS STANDARD HCO3 23.5 MMOL/L; VENOUS TOTAL CO2 26.8 MMOL/L (24.0-28.0)
[2024-08-08 13:14] LABS: ALBUMIN 2.7 G/DL (3.2-5.2); ALKALINE PHOSPHATASE 58 U/L (35-104); ALT/SGPT 13 U/L (7.0-40); AST/SGOT 17 U/L (<34); BILIRUBIN,DIRECT < 0.1 MG/DL (<0.4); BILIRUBIN,TOTAL 0.2 MG/DL (0.3-1.2); BLOOD UREA NITROGEN 46 MG/DL (9-23); CALCIUM LEVEL 8.9 MG/DL (8.3-10.6); CARBON DIOXIDE LEVEL 25 MMOL/L (20-31); CHLORIDE LEVEL 91 MMOL/L (98-107); CK-MB VALUE MASS 1.7 NG/ML (<3.6); CPK CREATINE PHOSPHOKINASE 81 U/L (34-145); CREATININE FOR GFR 1.88 MG/DL (0.55-1.30); GLOMERULAR FILTRATION RATE 27.4 (>32); GLUCOSE, FASTING 531 MG/DL (74-106); MB/CK RELATIVE INDEX 2.09 (< OR =4); POTASSIUM SERUM 3.1 MMOL/L (3.5-5.1); SODIUM LEVEL 128 MMOL/L (136-145); THYROID STIMULATING HORMONE 4.159 uIU/ML (0.55-4.78); TOTAL PROTEIN 6.9 G/DL (5.7-8.2)
[2024-08-08] MEDS: NS 1,000 ML IV ONE ×2 (13:45→18:14)
[2024-08-08] MEDS: KCL 10MEQ/100ML SWI (KRUN) 10 MEQ in IV 1 EA IV ONE ×2 (13:46→19:35)
[2024-08-08 13:48] LABS: OSMOLALITY SERUM 314 MOSM/KG (280-301)
[2024-08-08 13:59] LABS: HEMOGLOBIN A1c 13.7 % (4.0-6.0)
[2024-08-08] MEDS ORDERED: HumuLIN R (REGULAR) INSULIN (NovoLIN R) **100U/ML** PER UNIT IV ONE (14:50)
[2024-08-08] MEDS ORDERED: INSULIN IV RATE CHANGE DOCUMENTATION ML/HR XX SCH (15:25)
[2024-08-08] MEDS: INSULIN REGULAR IN 0.9 % NACL 100 UNIT in IV 1 EA IV SCH (16:29)
[2024-08-08] MEDS ORDERED: D5W IV ONE (17:55)
[2024-08-08] MEDS ORDERED: MAGNESIUM SULFATE IV ONE (17:55)
[2024-08-08] MEDS: MAG SULF 1GM/100ML (MAG RUN) 1 GM in IV 1 EA IV ONE (18:14)
[2024-08-08] MEDS: cefTRIAXone SOD 1 GM in DEXTROSE 5% (D5W) ADV/MINI-BAG 50 ML IV ONE (18:14)
[2024-08-08] MEDS ORDERED: IBUP200T46 PO (19:23)
[2024-08-08] MEDS ORDERED: SERT50TA29 PO (19:23)
[2024-08-08] MEDS ORDERED: CARV25TA PO (19:23)
[2024-08-08] MEDS ORDERED: ATOR80TA59 PO (19:23)
[2024-08-08] MEDS ORDERED: GLIP5TAB20 PO (19:25)
[2024-08-08] MEDS ORDERED: MED REC COMMENT (19:27)
[2024-08-08] MEDS ORDERED: HOME MED LIST COMPLETE! XX SCH ×2 (19:30)
[2024-08-08] MEDS: POTASSIUM CHLORIDE 10MEQ SR TABLET PO ONE (19:54)
[2024-08-08] MEDS ORDERED: DEXTROSE 50% 50ML SYRINGE IV PRN (20:20)
[2024-08-08] MEDS ORDERED: GLUCAGON INJ 1MG VIAL SC PRN (20:20)
[2024-08-08] MEDS ORDERED: IBUPROFEN 200MG TAB PO PRN (20:50)
[2024-08-08] MEDS: INSULIN LISPRO (NovoLOG) PER UNIT SC SCH (21:36)
[2024-08-08] MEDS: HEPARIN SOD (PORCINE) 5000UNITS/ML 1ML VIAL/SYRINGE SC SCH (21:42)
[2024-08-08] MEDS: DOCUSATE SODIUM 100MG CAPSULE PO SCH (21:42)
[2024-08-08] MEDS: NS 1,000 ML IV SCH (21:43)
[2024-08-08] MEDS: CARVedilol 12.5 MG TAB PO SCH (22:01)
[2024-08-08 22:10] VITALS: BP 125/91; TEMP 97.2; O2SAT 98
[2024-08-08] MEDS ORDERED: IBUPROFEN 400MG TAB PO PRN (22:10)
[2024-08-08 22:56] LABS: CALCIUM LEVEL 8.2 MG/DL (8.3-10.6); CREATININE FOR GFR 1.74 MG/DL (0.55-1.30); PHOSPHORUS LEVEL 2.3 MG/DL (2.4-5.1); POTASSIUM SERUM 3.3 MMOL/L (3.5-5.1)
[2024-08-08 23:08] LABS: PROCALCITONIN 0.42 ng/ml
[2024-08-09] VITALS: BP 122/89; TEMP 97.2; O2SAT 98
[2024-08-09 04:00] VITALS: BP 124/85; TEMP 97.2; O2SAT 98
[2024-08-09 06:51] LABS: HEMATOCRIT 29.7 % (36.0-47.0); MEAN CORPUSCULAR HEMOGLOBIN 29.8 pg (27.0-33.0); MEAN CORPUSCULAR HGB CONC 33.7 g/dl (32.0-36.5); MEAN CORPUSCULAR VOLUME 88.4 fl (80.0-96.0); PLATELET COUNT, AUTOMATED 271 10^3/uL (150-450); RED BLOOD COUNT 3.36 10^6/uL (4.00-5.40); WHITE BLOOD COUNT 9.3 10^3/uL (4.0-10.0)
[2024-08-09 07:42] LABS: CALCIUM LEVEL 8.5 MG/DL (8.3-10.6); CREATININE FOR GFR 1.71 MG/DL (0.55-1.30); GLOMERULAR FILTRATION RATE 30.6 (>32); MAGNESIUM LEVEL 1.7 MG/DL (1.8-2.4); POTASSIUM SERUM 3.4 MMOL/L (3.5-5.1)
[2024-08-09 08:01] VITALS: BP 100/75
[2024-08-09] MEDS: INSULIN LISPRO (NovoLOG) PER UNIT SC SCH (08:05)
[2024-08-09] MEDS: ATORVASTATIN 20 MG TAB PO SCH (08:06)
[2024-08-09] MEDS: POTASSIUM CHLORIDE 10MEQ SR TABLET PO SCH (08:06)
[2024-08-09] MEDS: ASPIRIN 81MG ENTERIC TABLET PO SCH (08:06)
[2024-08-09] MEDS: SERTRALINE HCL 50 MG TAB PO SCH (08:06)
[2024-08-09] MEDS: FUROSEMIDE 40 MG TAB PO SCH (09:00)
[2024-08-09 09:11] LABS: HEMOGLOBIN A1c 13.7 % (4.0-6.0)
[2024-08-09] MEDS ORDERED: LEVEMIR (INSULIN DETEMIR) 1 UNITS/0.01ML SC ONE (11:15)
[2024-08-09 12:30] VITALS: BP 139/69; TEMP 98.6; O2SAT 94
[2024-08-09] MEDS: LEVEMIR (INSULIN DETEMIR) 1 UNITS/0.01ML SC SCH (12:37)
[2024-08-09] MEDS ORDERED: GLUC1TES2 XX (16:27)
[2024-08-09] MEDS ORDERED: ALCOPAD25 TOP (16:27)
[2024-08-09] MEDS ORDERED: BLOOKIT21 XX (16:27)
[2024-08-09] MEDS ORDERED: LANTINJ4 SC (16:27)
[2024-08-09] MEDS ORDERED: PEN-308 SC (16:27)
[2024-08-09] MEDS ORDERED: LANC30MI XX (16:27)
[2024-08-09] MEDS: MAGNESIUM OXIDE 400MG TAB (MAG-OX) PO SCH (17:10)
[2024-08-09] MEDS: cefTRIAXone SOD 1 GM in DEXTROSE 5% (D5W) ADV/MINI-BAG 50 ML IV SCH (17:10)
[2024-08-09 20:30] VITALS: BP 125/43; TEMP 98.1; O2SAT 96
[2024-08-10 04:00] VITALS: BP 137/50; TEMP 97.3; O2SAT 96
[2024-08-10 06:07] LABS: HEMATOCRIT 28.1 % (36.0-47.0); HEMOGLOBIN 9.4 g/dl (12.0-15.5); MEAN CORPUSCULAR HEMOGLOBIN 30.4 pg (27.0-33.0); MEAN CORPUSCULAR HGB CONC 33.5 g/dl (32.0-36.5); MEAN CORPUSCULAR VOLUME 90.9 fl (80.0-96.0); PLATELET COUNT, AUTOMATED 256 10^3/uL (150-450); RED BLOOD COUNT 3.09 10^6/uL (4.00-5.40)
[2024-08-10 06:30] LABS: CALCIUM LEVEL 8.2 MG/DL (8.3-10.6); CREATININE FOR GFR 1.46 MG/DL (0.55-1.30); GLOMERULAR FILTRATION RATE 36.7 (>32); MAGNESIUM LEVEL 1.5 MG/DL (1.8-2.4); POTASSIUM SERUM 3.9 MMOL/L (3.5-5.1)
[2024-08-10 12:00] VITALS: BP 109/70; TEMP 97.9; O2SAT 97
[2024-08-10] MEDS: CEFDINIR 300 MG CAP (OMNICEF) PO SCH (12:48)
[2024-08-10] MEDS: ACETAMINOPHEN 325 MG TAB PO PRN (15:34)
[2024-08-10] MEDS: RIVAROXABAN 10MG TAB (XARELTO) PO SCH (18:04)
[2024-08-10] MEDS: METOCLOPRAMIDE INJ 10MG/2ML VIAL IV ONE (18:50)
[2024-08-10] MEDS ORDERED: HEPARIN SOD (PORCINE) 5000UNITS/ML 1ML VIAL/SYRINGE SC SCH (21:00)
[2024-08-11] MEDS: RAMELTEON 8 MG TAB (ROZEREM) PO PRN (00:56)
[2024-08-11 06:29] VITALS: BP 90/56; TEMP 97.5; O2SAT 95
[2024-08-11 08:12] VITALS: BP 96/40; O2SAT 95
[2024-08-11] MEDS ORDERED: FLUCONAZOLE 50MG TABLET PO ONE (11:20)
[2024-08-12 04:20] VITALS: BP 129/56; TEMP 98.6; O2SAT 94
[2024-08-12] MEDS: LATANOPROST 0.005% OPHTH SOLN 2.5 ML OU SCH (20:37)
[2024-08-12 22:11] VITALS: O2SAT 96
[2024-08-13 03:50] VITALS: BP 114/52; TEMP 98.2; O2SAT 94
[2024-08-13 05:11] VITALS: O2SAT 94
[2024-08-13] MEDS: LEVEMIR (INSULIN DETEMIR) 1 UNITS/0.01ML SC SCH (08:21)
[2024-08-13] MEDS: metFORMIN (GLUCOPHAGE) 500MG TAB PO SCH (12:34)
[2024-08-13] MEDS: ONDANSETRON 4MG ORAL DISINTEGRATING TAB PO PRN (12:34)
[2024-08-13] MEDS ORDERED: PILL CUTTER 1 EACH XX ONE (14:41)
[2024-08-13] MEDS: SITagliptin 50 MG TAB (JANUVIA) PO SCH (15:11)
[2024-08-13] MEDS: GLUCOSE 4 GM CHEW PO PRN (16:43)
[2024-08-14 05:45] VITALS: BP 110/48; TEMP 97.2; O2SAT 93
[2024-08-14] MEDS: LEVEMIR (INSULIN DETEMIR) 1 UNITS/0.01ML SC SCH (10:02)
[2024-08-14 12:00] VITALS: BP 125/89; TEMP 97.5; O2SAT 98
[2024-08-14 19:56] VITALS: BP 98/36; TEMP 97.3; O2SAT 95
[2024-08-15] MEDS: LEVEMIR (INSULIN DETEMIR) 1 UNITS/0.01ML SC SCH (08:23)
[2024-08-16 04:00] VITALS: BP 112/62; TEMP 98.2; O2SAT 94
[2024-08-16 06:36] LABS: CALCIUM LEVEL 8.9 MG/DL (8.3-10.6); CREATININE FOR GFR 1.35 MG/DL (0.55-1.30); GLOMERULAR FILTRATION RATE 40.2 (>32); MAGNESIUM LEVEL 2.2 MG/DL (1.8-2.4); POTASSIUM SERUM 4.6 MMOL/L (3.5-5.1)
[2024-08-16 06:40] LABS: HEMOGLOBIN A1c 12.8 % (4.0-6.0)
[2024-08-16] MEDS: MAGNESIUM OXIDE 400MG TAB (MAG-OX) PO SCH (09:06)
[2024-08-16] MEDS: CARVedilol 3.125 MG TAB PO SCH (09:07)
[2024-08-17 04:00] VITALS: BP 145/58; TEMP 97.8; O2SAT 95
[2024-08-17 09:44] VITALS: BP 139/67
[2024-08-17] MEDS ORDERED: FURO20TA2 PO (11:27)
[2024-08-17] MEDS ORDERED: SITA50TAB PO (11:27)
[2024-08-17] MEDS ORDERED: METF500T13 PO (11:27)
[2024-08-17] MEDS ORDERED: CARV6.25 PO (11:27)
== END 2024-08-17 13:50 | disposition home health service (06) | DRG 638 ==
LOC: M ED 11:30 → M ED INP 20:16 → M MSPAV 22:03
PROVIDERS: ADMIT Student in an Organized Health Care Education/Training Program; ATTEND Internal Medicine
DX: E11.65 Type 2 diabetes mellitus with hyperglycemia (principal); N39.0 Urinary tract infection, site not specified; E87.1 Hypo-osmolality and hyponatremia; N18.4 Chronic kidney disease, stage 4 (severe); R53.1 Weakness; I25.10 Atherosclerotic heart disease of native coronary artery without angina pectoris; E78.5 Hyperlipidemia, unspecified; M06.9 Rheumatoid arthritis, unspecified; E11.22 Type 2 diabetes mellitus with diabetic chronic kidney disease; I12.9 Hypertensive chronic kidney disease with stage 1 through stage 4 chronic kidney disease, or unspecified chronic kidney disease; E86.0 Dehydration; Z95.1 Presence of aortocoronary bypass graft; E87.6 Hypokalemia; E83.42 Hypomagnesemia; Z88.8 Allergy status to other drugs, medicaments and biological substances; Z91.013 Allergy to seafood; Z79.82 Long term (current) use of aspirin; Z79.899 Other long term (current) drug therapy; Z95.2 Presence of prosthetic heart valve; Z85.51 Personal history of malignant neoplasm of bladder; Z66 Do not resuscitate

== ENCOUNTER → 2024-09-14 | Outpatient (CLI) | payer MEDICARE ==
[~2024-09-14] MED LIST changes: +ALCOPAD25 TOP; +ATOR80TA59 PO; +BLOOKIT21 XX; +CARV25TA PO; +CARV6.25 PO; +FURO20TA2 PO; +GLIP5TAB20 PO; +GLUC1TES2 XX; +IBUP200T46 PO; +LANC30MI XX; +LANTINJ4 SC; +MED REC COMMENT; +METF500T13 PO; +PEN-308 SC; +SERT50TA29 PO; +SITA50TAB PO
[2024-09-14 16:21] LABS: BILIRUBIN,TOTAL 0.3 MG/DL (0.3-1.2); CALCIUM LEVEL 9.8 MG/DL (8.3-10.6); CREATININE FOR GFR 1.44 MG/DL (0.55-1.30); GLOMERULAR FILTRATION RATE 37.3 (>32); POTASSIUM SERUM 3.9 MMOL/L (3.5-5.1); TOTAL PROTEIN 7.7 G/DL (5.7-8.2)
== END ==
LOC: M PLALAB 12:59
PROVIDERS: ATTEND Family Medicine
DX: E11.22 Type 2 diabetes mellitus with diabetic chronic kidney disease (principal)

== ENCOUNTER → 2024-11-09 | Outpatient (REF) | payer MEDICARE ==
[2024-11-09 19:07] LABS: APPEARANCE, URINE CLEAR (CLEAR); BACTERIA, URINE AUTO NEGATIVE (NEGATIVE); BILIRUBIN, URINE AUTO NEGATIVE (NEGATIVE); BLOOD, URINE BLOOD NEGATIVE (NEGATIVE); COLOR, URINE YELLOW (YELLOW); GLUCOSE, URINE (UA) AUTO NEGATIVE (NEGATIVE); KETONE, URINE AUTO NEGATIVE (NEGATIVE); LEUKOCYTE ESTERASE, URINE AUTO NEGATIVE (NEGATIVE); MUCUS, URINE SMALL (NEGATIVE); NITRITE, URINE AUTO NEGATIVE (NEGATIVE); PROTEIN, URINE AUTO 1+ mg/dL (NEGATIVE); RBC, URINE AUTO 5 /HPF (0-3); SPECIFIC GRAVITY URINE AUTO 1.024 (1.002-1.035); SQUAMOUS EPITHELIAL CELL UR AU 0 /HPF (0-6); UROBILINOGEN, URINE AUTO 0.2 mg/dL (0.0-2.0); WBC, URINE AUTO 3 /HPF (0-3)
== END ==
LOC: M SMT 17:38
PROVIDERS: ATTEND Urology
DX: N39.0 Urinary tract infection, site not specified (principal)

== ENCOUNTER → 2024-11-20 | Outpatient (CLI) | payer MEDICARE ==
[~2024-11-20] MED LIST changes: +GLIP-318 PO; -GLIP5TAB20 PO
== END ==
LOC: M PLAIMG 15:32
PROVIDERS: ATTEND Family Medicine
DX: M25.561 Pain in right knee (principal); M11.261 Other chondrocalcinosis, right knee

== ENCOUNTER → 2025-01-29 | Outpatient (CLI) | payer MEDICARE ==
[2025-01-29 17:13] LABS: BASO % 0.5 % (0.0-1.0); EOS # 0.1 10^3/uL (0.0-0.5); EOS % 1.5 % (0.0-3.0); HEMATOCRIT 33.1 % (36.0-47.0); HEMOGLOBIN 10.6 g/dl (12.0-15.5); LYMPH # 2.3 10^3/uL (1.5-5.0); LYMPH % 29.4 % (24.0-44.0); MEAN CORPUSCULAR HEMOGLOBIN 30.2 pg (27.0-33.0); MEAN CORPUSCULAR VOLUME 94.3 fl (80.0-96.0); MONO # 0.5 10^3/uL (0.0-0.8); NEUTROPHILS # 4.9 10^3/uL (1.5-8.5); NEUTROPHILS % 62.3 % (36.0-66.0); PLATELET COUNT, AUTOMATED 216 10^3/uL (150-450); RED BLOOD COUNT 3.51 10^6/uL (4.00-5.40); WHITE BLOOD COUNT 7.8 10^3/uL (4.0-10.0)
[2025-01-29 17:40] LABS: HEMOGLOBIN A1c 6.2 % (4.0-6.0)
[2025-01-29 17:41] LABS: ALBUMIN 3.5 G/DL (3.2-5.2); BILIRUBIN,TOTAL 0.3 MG/DL (0.3-1.2); CALCIUM LEVEL 9.2 MG/DL (8.3-10.6); CREATININE FOR GFR 1.33 MG/DL (0.55-1.30); GLOMERULAR FILTRATION RATE 40.5 (>32); POTASSIUM SERUM 4.1 MMOL/L (3.5-5.1); TOTAL PROTEIN 6.7 G/DL (5.7-8.2)
[2025-01-29 17:45] LABS: CREATININE, URINE 66.1 MG/DL; MAU/CREAT RATIO 69.5 MCG/MG (0.0-30.0)
== END ==
LOC: M PLALAB 15:38
PROVIDERS: ATTEND Family Medicine
DX: E11.22 Type 2 diabetes mellitus with diabetic chronic kidney disease (principal); N18.9 Chronic kidney disease, unspecified

== ENCOUNTER → 2025-03-22 | Outpatient (CLI) | payer MEDICARE ==
[~2025-03-22] MED LIST changes: -PRAV40TA2 PO; +PRAV40TA85 PO
[2025-03-22 17:35] LABS: C REACTIVE PROTEIN QUANTITATIV < 0.50 MG/DL (<1.0)
[2025-03-22 17:38] LABS: RHEUMATOID FACTOR QUANT 7.8 IU/ML (<14)
[2025-03-27 20:05] LABS: LYME TOTAL ANTIBODY CIA <= 0.90 Index (<=0.90)
== END ==
LOC: M PLALAB 14:44
PROVIDERS: ATTEND Family Medicine
DX: M25.50 Pain in unspecified joint (principal)

== ENCOUNTER → 2025-06-04 | Outpatient (REF) | payer MEDICARE | LOC: M SMT 16:56 | PROVIDERS: ATTEND Urology | DX: C67.9 Malignant neoplasm of bladder, unspecified (principal) ==

== ENCOUNTER → 2025-08-14 | Outpatient (CLI) | payer MEDICARE ==
[2025-08-14 19:11] LABS: ALT/SGPT 28.0 U/L (7.0-40); AST/SGOT 29.0 U/L (<34); CALCIUM LEVEL 9.3 MG/DL (8.3-10.6); CARBON DIOXIDE LEVEL 30.0 MMOL/L (20-31); CHLORIDE LEVEL 99.0 MMOL/L (98-107); CREATININE FOR GFR 1.4 MG/DL (0.55-1.30); GLOMERULAR FILTRATION RATE 37.8 (>32); MAGNESIUM LEVEL 1.2 MG/DL (1.8-2.4); POTASSIUM SERUM 4.3 MMOL/L (3.5-5.1); SODIUM LEVEL 140.0 MMOL/L (136-145)
== END ==
LOC: M PLALAB 16:32
PROVIDERS: ATTEND Nurse Practitioner Family
DX: I25.5 Ischemic cardiomyopathy (principal)

== ENCOUNTER 2025-09-11 11:10 | Emergency (ER) | payer MEDICARE ==
[2025-09-11] MEDS ORDERED: ISOVUE-370 76% 100 ML VIAL As Ordered ONE (14:57)
[2025-09-11 15:05] LABS: BASO # 0.1 10^3/uL (0.0-0.2); BASO % 0.7 % (0.0-1.0); EOS # 0.1 10^3/uL (0.0-0.5); EOS % 0.8 % (0.0-3.0); LYMPH # 2.0 10^3/uL (1.5-5.0); LYMPH % 23.6 % (24.0-44.0); MONO # 0.6 10^3/uL (0.0-0.8); MONO % 7.0 % (2.0-8.0); NEUTROPHILS # 5.7 10^3/uL (1.5-8.5); NEUTROPHILS % 67.5 % (36.0-66.0); PLATELET COUNT, AUTOMATED 250 10^3/uL (150-450)
[2025-09-11 15:37] LABS: ALT/SGPT 19.0 U/L (7.0-40); AST/SGOT 19.0 U/L (<34); CALCIUM LEVEL 9.6 MG/DL (8.3-10.6); CARBON DIOXIDE LEVEL 29.0 MMOL/L (20-31); CHLORIDE LEVEL 103.0 MMOL/L (98-107); CREATININE FOR GFR 1.19 MG/DL (0.55-1.30); GLOMERULAR FILTRATION RATE 45.9 (>32); POTASSIUM SERUM 4.6 MMOL/L (3.5-5.1); SODIUM LEVEL 139.0 MMOL/L (136-145)
[2025-09-11 15:53] VITALS: TEMP 97.2
[2025-09-11] MEDS ORDERED: BEDSIDE COMMODE XX (17:06)
[2025-09-11 18:00] VITALS: BP 170/87; O2SAT 97
== END 2025-09-11 18:24 | disposition home or self-care (01) ==
LOC: M ED 11:10
DX: E11.65 Type 2 diabetes mellitus with hyperglycemia (principal); K46.9 Unspecified abdominal hernia without obstruction or gangrene; R79.9 Abnormal finding of blood chemistry, unspecified; K57.30 Diverticulosis of large intestine without perforation or abscess without bleeding; E78.5 Hyperlipidemia, unspecified; I10 Essential (primary) hypertension; I25.2 Old myocardial infarction; Z91.013 Allergy to seafood; Z91.041 Radiographic dye allergy status; Z91.09 Other allergy status, other than to drugs and biological substances; Z79.84 Long term (current) use of oral hypoglycemic drugs; Z87.442 Personal history of urinary calculi; Z79.82 Long term (current) use of aspirin; Z79.899 Other long term (current) drug therapy; Z79.02 Long term (current) use of antithrombotics/antiplatelets
CPT/HCPCS: 36415; 74177; 80047; 80048; 80076; 83605; 83690; 85025; 93041; 99285; Q9967